=== PATIENT | female | born 1935 | race Caucasian/White ===

== ENCOUNTER 2022-12-24 02:15 | Emergency (ER) | payer MEDICARE, BC, SELFPAY ==
[2022-12-24] VITALS (54 sets, daily range): BP systolic 106–158; BP diastolic 47–87; PULSE 39–50; RESP 14–20; TEMP 37.1; O2SAT 89–100; BMI 28.1
--- NOTE | 2022-12-24 | CRLHL7_ITS ---
For Patients: As a result of the Century Cures Act, medical imaging exams and procedure reports are released immediately into your electronic medical record. You may view this report before your referring provider. If you have questions, please contact your health care provider. Indication: POST REDUCTION LT ELBOW Technique: Left elbow 3 views Comparison: December 24, 2022. Impression: Status post reduction of previously noted dislocated left elbow joint. Alignment is improved. Question of small osseous fragment versus splint material artifact adjacent to the radial head. Overall, splinting material limits evaluation of the osseous detail. Fracture fragment not excluded. Dictated by Balaji Israel MD @ 12/24/2022 5:20:18 AM (Electronically Signed)
--- NOTE | 2022-12-24 02:24 | CRLHL7_ITS ---
For Patients: As a result of the Cures Act, medical imaging exams and procedure reports are released immediately into your electronic medical record. You may view this report before your referring provider. If you have questions, please contact your health care provider. Indication: Fall with elbow dislocation. Technique: Left elbow AP 1 views. Comparison: None. Findings/Impression: There is a dislocation of the elbow joint. No fracture line evident. No other abnormality. Dictated by Ramirez Ibarra MD @ 12/24/2022 3:01:57 AM (Electronically Signed)
--- NOTE | 2022-12-24 02:24 | ED.GENADULT ---
HPI - General Adult General Date Seen: 12/24/22 Chief complaint: Fall/Minor Trauma Stated complaint: fall Time Seen by Provider: 12/24/22 02:17 Source: patient and EMS Mode of arrival: EMS Limitations: other History of Present Illness HPI narrative: Patient is an 87-year-old woman brought in by EMS after falling down 4 stairs. She said her had already gone to bed but she was able to call for help. She denies hitting her head, denies neck pain. She has obvious deformity to the left elbow and was given 150 mcg of fentanyl and 2 mg of Versed EN route. She is subsequently somewhat somnolent, but arouses and response to questions appropriately. She denies any difficulty breathing or chest pain, she denies loss of consciousness. Denies lower extremity pain. Denies numbness in the left distal upper extremity. She denies anticoagulation. Related Data Home Medications Medication Instructions Recorded Confirmed bupropion HCl 150 mg 24 hr tablet, mg PO 06/08/22 06/08/22 extended release bupropion HCl 300 mg 24 hr tablet, 300 mg PO 06/08/22 06/08/22 extended release buspirone 5 mg tablet 5 mg PO 06/08/22 06/08/22 desvenlafaxine succinate 100 mg 700 mg PO 06/08/22 06/08/22 tablet,extended release 24 hr donepezil 10 mg tablet 10 mg PO 06/08/22 06/08/22 gabapentin 300 mg capsule 300 mg PO 06/08/22 06/08/22 lorazepam 1 mg tablet mg PO 06/08/22 06/08/22 oxybutynin chloride 5 mg tablet 5 mg PO 06/08/22 06/08/22 rosuvastatin 10 mg tablet 10 mg PO 06/08/22 06/08/22 trazodone 100 mg tablet 100 mg PO 06/08/22 06/08/22 acetaminophen 500 mg tablet 500 mg PO Q6H PRN 12/24/22 12/24/22 (Tylenol Extra Strength) folic acid 400 mcg tablet 400 mcg PO DAILY 12/24/22 12/24/22 multivitamin (Daily Multi-Vitamin 1 tab PO DAILY 12/24/22 12/24/22 tablet) vitamin B complex (B 1 tab PO DAILY 12/24/22 12/24/22 Complex-Vitamin B12 tablet) Allergies Allergy/AdvReac Type Severity Reaction Status Date / Time No Known Drug Allergies Allergy Verified 06/08/22 12:02 Review of Systems Status of ROS: Reports: 10 or more systems reviewed and unremarkable except as noted in History and below [facility] Social History Smoking Status: Former smoker Do you use any of these nicotine containing products: None Non-prescribed substance use: denies use Exam Narrative: Exam Narrative: Vital signs as noted above. In general, an alert, somewhat somnolent elderly woman, rouses to voice. Head: Normocephalic, atraumatic. Eyes: Pupils are small but reactive bilaterally. Extraocular movements are full. Conjunctivae are normal. ENT: Mucous membranes are moist. No facial trauma. Neck: Supple without lymphadenopathy. Nontender to palpation. Heart: Regular rate and rhythm. No murmur or rub. Lungs: Clear bilaterally. No increased work of breathing, crackles or wheezes. Chest is nontender. Abdomen: Soft and nontender. No organomegaly. Back: Not evaluated initially secondary to pain with any movement of her arm. Pelvis: Nontender to palpation. Extremities: There is obvious deformity of the left elbow. Radial pulse is intact and sensation is intact to light touch. She is able to wiggle her fingers. She has a 0.5 cm laceration on her left thumb. Right upper extremity and bilateral lower extremities are atraumatic. Neurologic: Patient is somnolent but arousable, and oriented to person and place. Consistent with significant medications en route. Speech is fluent. Face is symmetric. Moves all extremities equally. Affect: Normal. Skin: Warm and dry. Well perfused. Const: Vital Signs, click to edit/add: Vital Signs - 24 hr 12/24/22 02:20 12/24/22 02:37 12/24/22 02:40 Temperature 98.7 F Pulse Rate 46 L 46 L Pulse Rate [Right Pulse Oximeter] 45 L Respiratory Rate 16 Blood Pressure 149/74 H Blood Pressure [Ri ght Upper Arm] 158/69 H Pulse Oximetry 93 89 97 Oxygen Delivery Me thod Nasal Cannula Oxygen Flow Rate 3 12/24/22 02:41 12/24/22 02:43 12/24/22 02:52 Temperature Pulse Rate 44 L 48 L Pulse Rate [Right Pulse Oximeter] Respiratory Rate Blood Pressure 150/64 H 145/65 H Blood Pressure [Ri ght Upper Arm] Pulse Oximetry 97 97 Oxygen Delivery Me thod Oxygen Flow Rate 12/24/22 03:03 12/24/22 03:12 12/24/22 03:12 Temperature Pulse Rate Pulse Rate [Right Pulse Oximeter] Respiratory Rate Blood Pressure 142/87 H 146/64 H Blood Pressure [Ri ght Upper Arm] Pulse Oximetry 94 Oxygen Delivery Me thod Oxygen Flow Rate 12/24/22 03:22 12/24/22 03:32 12/24/22 03:42 Temperature Pulse Rate Pulse Rate [Right Pulse Oximeter] Respiratory Rate Blood Pressure 115/56 L 142/57 H 125/55 L Blood Pressure [Ri ght Upper Arm] Pulse Oximetry Oxygen Delivery Me thod Oxygen Flow Rate 12/24/22 03:52 12/24/22 04:00 12/24/22 04:02 Temperature Pulse Rate 42 L 42 L Pulse Rate [Right Pulse Oximeter] Respiratory Rate Blood Pressure 128/64 137/59 L Blood Pressure [Ri ght Upper Arm] Pulse Oximetry 96 95 Oxygen Delivery Me thod Oxygen Flow Rate 12/24/22 04:10 12/24/22 04:12 12/24/22 04:23 Temperature Pulse Rate 42 L 44 L Pulse Rate [Right Pulse Oximeter] Respiratory Rate Blood Pressure 131/55 L 110/52 L Blood Pressure [Ri ght Upper Arm] Pulse Oximetry 97 96 Oxygen Delivery Me thod Oxygen Flow Rate 12/24/22 04:25 12/24/22 04:30 12/24/22 04:31 Temperature Pulse Rate 45 L 49 L Pulse Rate [Right Pulse Oximeter] Respiratory Rate 16 15 Blood Pressure 141/68 H Blood Pressure [Ri ght Upper Arm] Pulse Oximetry 98 100 Oxygen Delivery Me thod Oxygen Flow Rate 12/24/22 04:32 12/24/22 04:35 12/24/22 04:38 Temperature Pulse Rate 50 L 44 L 45 L Pulse Rate [Right Pulse Oximeter] Respiratory Rate 16 20 17 Blood Pressure 137/65 132/65 146/64 H Blood Pressure [Ri ght Upper Arm] Pulse Oximetry 100 100 100 Oxygen Delivery Me thod Oxygen Flow Rate 12/24/22 04:40 12/24/22 04:41 12/24/22 04:44 Temperature Pulse Rate 48 L 43 L 42 L Pulse Rate [Right Pulse Oximeter] Respiratory Rate 15 15 Blood Pressure 114/60 134/60 Blood Pressure [Ri ght Upper Arm] Pulse Oximetry 100 100 100 Oxygen Delivery Me thod Oxygen Flow Rate 12/24/22 04:45 12/24/22 04:47 12/24/22 04:50 Temperature Pulse Rate 42 L 44 L 50 L Pulse Rate [Right Pulse Oximeter] Respiratory Rate 14 18 Blood Pressure 130/67 Blood Pressure [Ri ght Upper Arm] Pulse Oximetry 100 100 92 Oxygen Delivery Me thod Oxygen Flow Rate 12/24/22 04:51 12/24/22 04:53 12/24/22 04:54 Temperature Pulse Rate 40 L 40 L 44 L Pulse Rate [Right Pulse Oximeter] Respiratory Rate Blood Pressure 119/57 L 119/61 Blood Pressure [Ri ght Upper Arm] Pulse Oximetry 97 97 96 Oxygen Delivery Me thod Oxygen Flow Rate 12/24/22 04:55 12/24/22 04:56 12/24/22 04:59 Temperature Pulse Rate 40 L 42 L 39 L Pulse Rate [Right Pulse Oximeter] Respiratory Rate Blood Pressure 106/66 117/49 L Blood Pressure [Ri ght Upper Arm] Pulse Oximetry 95 97 Oxygen Delivery Me thod Oxygen Flow Rate 12/24/22 05:00 12/24/22 05:02 12/24/22 05:05 Temperature Pulse Rate 39 L 42 L 43 L Pulse Rate [Right Pulse Oximeter] Respiratory Rate Blood Pressure 118/58 L 125/55 L Blood Pressure [Ri ght Upper Arm] Pulse Oximetry 97 96 96 Oxygen Delivery Me thod Oxygen Flow Rate 12/24/22 05:06 12/24/22 05:08 Temperature Pulse Rate 43 L 43 L Pulse Rate [Right Pulse Oximeter] Respiratory Rate Blood Pressure 124/55 L Blood Pressure [Ri ght Upper Arm] Pulse Oximetry 96 96 Oxygen Delivery Me thod Oxygen Flow Rate Documenting provider has reviewed patient's vital signs: yes Course Course Hospital Course: Patient arrived with an IV in place and medications as discussed above. X-rays were done of the left elbow, single view only secondary to pain. This confirmed dislocation by my review. No obvious fracture on initial films. Patient had last had some watermelon at 8:00 p.m., arrived into the ER at around 2 a.m.. I did not have any other physician in house to help with sedation, therefore had to wait until she was fully NPO before asking anesthesia to provide sedation. In the meantime, I did put in some local anesthetic and attempted reduction that way. I was able to get partial reduction but not complete, and she was still uncomfortable, so I decided to abort that and simply wait until 3:30 a.m., at which time we called the [facility] to come in so that we could do her procedure at around 4. Procedure note: Sedation was provided by [facility] using propofol. She was maintained on oximetry, end-tidal CO2, playground monitor. She did well in terms of sedation without complications. Once sedated, the elbow was reduced using traction counter traction and flexion without difficulty. She is placed in a long-arm splint using Ortho Glass and 3 Margarito wraps. X-rays following the procedure confirm reduction. The small cut on her thumb was cleaned and bandaged. Did not require closure. At this time, she is denying any other complaints. She still has some pain in the elbow although it is improved; she says she has tolerated Vicodin well in the pass and I will give her few those for home. She is ambulatory without difficulty here. She will need orthopedic follow-up in the next few days. Vital Signs Vital signs: Initial Vital Signs Temperature 98.7 F 12/24/22 02:20 Temperature Source Temporal Artery Scan 12/24/22 02:20 Pulse Rate 45 L 12/24/22 02:20 Pulse Rhythm Regular 12/24/22 02:20 Pulse Strength 3+ Normal 12/24/22 02:20 Respiratory Rate 16 12/24/22 02:20 Blood Pressure 158/69 H 12/24/22 02:20 Blood Pressure Mean 98 12/24/22 02:20 Blood Pressure Position Supine 12/24/22 02:20 Pulse Oximetry 93 12/24/22 02:20 Oxygen Delivery Method Nasal Cannula 12/24/22 02:20 Oxygen Flow Rate 3 12/24/22 02:20 Vital Signs Temperature 98.7 F 12/24/22 02:20 Pulse Rate 45 L 12/24/22 02:20 Respiratory Rate 16 12/24/22 02:20 Blood Pressure 158/69 H 12/24/22 02:20 Pulse Oximetry 93 12/24/22 02:20 Oxygen Delivery Method Nasal Cannula 12/24/22 02:20 Oxygen Flow Rate 3 12/24/22 02:20 Temperature 98.7 F 12/24/22 02:20 Pulse Rate 43 L 12/24/22 05:08 Respiratory Rate 18 12/24/22 04:47 Blood Pressure 124/55 L 12/24/22 05:08 Pulse Oximetry 96 12/24/22 05:08 Oxygen Delivery Method Nasal Cannula 12/24/22 02:20 Oxygen Flow Rate 3 12/24/22 02:20 Discharge Plan Discharge Clinical Impression: Dislocation of left elbow Patient Disposition: Home, Self-Care Condition: Improved Instructions: Elbow Dislocation (ED) Additional Instructions: Orthopedic follow-up in the next few days. Call [phone] to schedule an appointment. You can use Vicodin if needed for pain, or you can take plain Tylenol. You should not combine the 2 as Vicodin has Tylenol in it. Be careful when taking Vicodin as this can cause dizziness and increased fall risk. Prescriptions: No Action bupropion HCl 150 mg tablet extended release 24 hr PO bupropion HCl 300 mg tablet extended release 24 hr 300 mg PO trazodone 100 mg tablet 100 mg PO buspirone 5 mg tablet 5 mg PO lorazepam 1 mg tablet PO rosuvastatin 10 mg tablet 10 mg PO desvenlafaxine succinate 100 mg tablet extended release 24 hr 700 mg PO gabapentin 300 mg capsule 300 mg PO donepezil 10 mg tablet 10 mg PO oxybutynin chloride 5 mg tablet 5 mg PO folic acid 400 mcg tablet 400 mcg PO DAILY acetaminophen [Tylenol Extra Strength] 500 mg tablet 500 mg PO Q6H PRN multivitamin [Daily Multi-Vitamin] Tablet 1 tab PO DAILY vitamin B complex [B Complex-Vitamin B12] Tablet 1 tab PO DAILY Follow Up/Referrals: Kristin Delgado MD [Primary Care Provider] - Stand Alone Forms: [employer] Info Instructions Discharge Comment: patient assisted with instymed and into the car. Patient tolerated transfer into the car. Patient discharged home with .
--- NOTE | 2022-12-24 05:02 | P.ANES_ITS ---
Anesthesia Charges Start Date/Time Anesthesia Start Date: 12/24/22 Anesthesia Start Time: 04:29 Stop Date/Time Anesthesia Stop Date: 12/24/22 Anesthesia Stop Time: 04:50 Summary Emergency: LOGISTICS LEAD Extremes of Age - Over 70 or under 1: LOGISTICS LEAD
--- NOTE | 2022-12-24 05:02 | W.ANESCHARGE ---
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
[2022-12-24] MEDS: HYDROCODONE-ACETAMIN 5-325 MG 1 TAB PO (05:56)
== END 2022-12-24 06:18 | disposition home or self-care (01) ==
PROVIDERS: Emergency Provider Emergency Medicine; PCP Family Medicine
DX: S53.105A Unspecified dislocation of left ulnohumeral joint, initial encounter (principal); W10.9XXA Fall (on) (from) unspecified stairs and steps, initial encounter
CPT/HCPCS: 01730; 24605; 73070; 94761; 99100; 99140; 99284; 99291; A9270; G0390; J2704; J3490

== ENCOUNTER 2023-04-02 13:00 | Outpatient (RCR) | payer MEDICARE, BC, SELFPAY ==
--- NOTE | 2023-02-06 14:34 | REH.OT ---
Pt was scheduled for OT evaluation today, however, pt did not show for her visit. Make Ready Mechanic called pt and she stated that she had forgotten about her appointment. Pt has been rescheduled for OT evaluation next week.
--- NOTE | 2023-02-13 15:26 | OT.OPOE ---
OT Outpatient Ortho Eval OT Outpatient Ortho Eval* Start: 02/06/23 07:23 Freq: Status: Active Protocol: Document 02/13/23 08:47 AMB (Rec: 02/13/23 15:22 AMB [id number]) E-signed By Faye Saxena, OTR/L, CLT, RN FORENSIC OT OP Ortho Eval Details Complexity Complexity Low Insurance Information Insurance Information Medicare B Outpatient History/Precautions Current Condition/Medical Diagnosis Referring Provider Dr Balderas Treatment Diagnosis LUE elbow dislocation Date of Onset 12/24/22 Medical Conditions Metal Implants,Arthritis Other Conditions PMH (copied from ortho chart): Active Problems (Updated 02/03 @ 10:53 by Coco Villa) Stiffness of finger joint of left hand (Acute) all digits, all joints. M25.642 - Stiffness of left hand, not elsewhere classified (ICD-10) Elbow stiffness (Acute) M25.629 - Stiffness of unspecified elbow, not elsewhere classified (ICD-10) Dislocation of left elbow ( Acute) S53.105A - Unspecified dislocation of left ulnohumeral joint, initial encounter (ICD-10) Osteoarthritis of carpometacarpal (CMC) joint of left thumb (Chronic) Severe M18.12 - Unilateral primary osteoarthritis of first carpometacarpal joint, left hand (ICD-10) Primary osteoarthritis, left wrist (Chronic) STT M19.032 - Primary osteoarthritis, left wrist ( ICD-10) Medical History (Updated 02/03 @ 10:53 by Coco Villa) Pain of left hip M25.552 - Pain in left hip ( ICD-10) Low back pain M54.50 - Low back pain, unspecified (ICD-10) Fracture of shaft of left femur S72.302A - Unspecified fracture of shaft of left femur, initial encounter for closed fracture (ICD-10) Fall W19.XXXA - Unspecified fall, initial encounter (ICD-10) Degenerative joint disease () M19.90 - Unspecified osteoarthritis, unspecified site (ICD-10) Surgical History (Updated @ 11:09 by Whit Woods ~ INFORMATION TECHNOLOGY CONSULTANT, INFORMATION TECHNOLOGY CONSULTANT) History of open reduction and internal fixation (ORIF) procedure (~11/2019) Z98.890 - Other specified postprocedural states (ICD-10) 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) Z96.641 - Presence of right artificial hip joint (ICD-10) 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) Z96.642 - Presence of left artificial hip joint (ICD-10) 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) Z96.652 - Presence of left artificial knee joint (ICD-10) 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) Z96.612 - Presence of left artificial shoulder joint (ICD -10) 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) Z96.611 - Presence of right artificial shoulder joint (ICD -10) Status post total right knee replacement (12/12/15) Z96.651 - Presence of right artificial knee joint (ICD-10) S/P trigger finger release () Z98.890 - Other specified postprocedural states (ICD-10) Medications: acetaminophen (Tylenol Extra Strength) 500 mg PO Q6H PRN bupropion HCl 300 mg PO bupropion HCl mg PO buspirone 5 mg PO desvenlafaxine succinate ER 700 mg PO donepezil 10 mg PO folic acid 400 mcg PO DAILY gabapentin 300 mg PO hydrocodone-acetaminophen 5- 325 mg 1 tab PO Q4-8H PRN lorazepam mg PO multivitamin (Daily Multi- Vitamin tablet) 1 tab PO DAILY oxybutynin chloride 5 mg PO rosuvastatin 10 mg PO trazodone 100 mg PO vitamin B complex (B Complex- Vitamin B12 tablet) 1 tab PO DAILY Medical/Functional History Medical History Reviewed Yes Prior Level of Function/Mobility Full, pain-free use of her LUE prior to injury. Pt lives with in their own home . Pt ambulates with a SEC, somewhat unsteady. Prior to injury, pt was independent with all self cares and did much of the cooking. Pt's did the laundry and they hired assistance for cleaning and yardwork. Pt's daughter was in attendance during today's OT evaluation. Dtr and ANSON will be moving in with pt and her to assist with cares and instructor product inspection and whatever else they need help with. Pt / do not drive. Social History Employment Status Retired Hobbies [employer] Sedentary Ortho Subjective Subjective Subjective Pt states that on 12/24/22 she fell backwards down 4 steps in her home. She was seen in the ER and discovered to have a dislocated elbow which was then reduced by Dr Vasques under anesthesia. Pt was referred to orthopedics and did see Dr Balderas on 12/30 and given a hinged elbow brace, she had a re-check with him on 02/03 and the brace was discontinued and referral placed for OT to begin ROM. Pain Assessment Pain Present Pain Present Pain Reported Location Left Arm Description Tightness,Throbbing Intensity 5 Range of Motion and Strength Shoulder Range of Motion and Strength Shoulder Range of Motion and Strength 02/13/23 AROM of BUE shoulder WFL throughout. Elbow/Forearm Range of Motion and Strength Elbow/Forearm Range of Motion and 02/13/23 AROM of the LUE elbow Strength is -35-110, pronation is WNL, supination is 50. AROM of the LUE wrist flexion is 70, ext is 30, UD is 30, RD is 25. Composite fist is -6cm from DPC when measured at tip of 3rd digit. OT Problems Problems Problems Decreased Strength,Decreased Range of Motion,Decreased Dexterity,Pain,Lifting, Gripping,Pinching Other Problems Opening Containers,Dressing, Fasteners Patient Potential Good Assessment Assessment Assessment Pt is a pleasant 87yo female reporting to OT with pain, swelling, weakness and limited AROM in her LUE secondary to elbow dislocation 7 weeks ago. These deficits impair pt's ability to grasp, hold and carry items, complete self cares and IADLs. Pt will benefit from skilled OT intervention to address limitations and restore full, pain-free use of her LUE. Occupational Therapy Treatment Plan - OP Potential Rehabilitation Potential Good Set Goals Goals Set with Patient Yes Goals Goals 1. Pt will be independent and compliant with HEP in order to resume full, pain-free use of the involved UE. 3 weeks 2. Pt will demonstrate full, pain-free AROM of the involved UE in order to improve ability to grasp and hold. 6 weeks 3. Pt will demonstrate pain- free roll filler and pinch strength comparable to the uninvolved side in order to improve functional grasp, hold, reach, and lifting ability needed to complete self-care, leisure tasks, and work activities. 8 weeks. Treatment Plan Treatment Plan Evaluation,Edema Control,Joint Mobilization,Manual Therapy, Therapeutic Exercise, Therapeutic Activities,Self Care/Home Management,Fruit Inspector Training,Education Expected Frequency 1-2x Week Expected Duration 8-10 Weeks Home Program Home Program Home Program Initiated Home Program Specifics Initiated HEP For AROM of the LUE elbow, forearm, wrist and hand. Following demo, pt is able to complete exs with cues for form, needs multiple cues for correct form. Pt was provided with written inst for use at home as well. Certification Certification I Certify That: Therapy Services Provided, Therapy Plan Established, Therapy Plan Reviewed Recertification Information Recertification Information Initial Certification Date 02/13/23 Recertification Due Date 05/14/23 Reasons to Continue Skilled Therapy Initiated skilled OT services today to address pain, weakness, swelling, and limited AROM in the LUE following elbow dislocation. Rehabilitation Potential Good Continued Plan of Care and Interventions Please see above POC. Provider Signature Shows Agreement With POC & Medical Necessity Physician Comment/Change Comment or Changes Physician NPI Number #
== END 2023-04-03 07:29 | disposition home or self-care (01) ==
PROVIDERS: PCP Family Medicine; Visit Provider Orthopaedic Surgery Sports Medicine
DX: S53.105D Unspecified dislocation of left ulnohumeral joint, subsequent encounter (principal); M25.629 Stiffness of unspecified elbow, not elsewhere classified; M25.642 Stiffness of left hand, not elsewhere classified; Z51.89 Encounter for other specified aftercare
CPT/HCPCS: 97035; 97110; 97140; 97165; X5282

== ENCOUNTER 2023-08-31 07:08 | Day surgery (SDC) | payer MEDICARE, BC, SELFPAY ==
[2023-08-31] VITALS (7 sets, daily range): BP systolic 147–177; BP diastolic 57–111; PULSE 60–69; RESP 16–18; TEMP 36.3–36.7; O2SAT 91–98; BMI 28.2
[2023-08-31] MEDS: BUPIVACAINE 0.5% 30 ML INJECTION (07:10)
[2023-08-31] MEDS: LIDOCAINE 2%-EPI 1:200,000 20 ML TOPICAL (07:10)
--- OUTSIDE RECORDS SUMMARY | 2023-08-31 07:13 | XMS_ITS | Clinical Summary ---
Author Name Unknown Organization [facility] Address [place], [place] [address] Care Team Providers Care Progress Man Name Role Phone Graham Ornelas MD Unavailable Emmy, Mary Brambila MD Unavailable [phone] Halima Pride MD Primary Care Provider Allergies Active Allergy Reactions Criticality Noted Date Comments Nsaids (Non-Steroidal Anti-Inflammatory Drug) Other - Describe In Comment Field 09/19/2011 Bleeding ulcer Simvastatin *Unknown 11/14/2019 Medications Medication Sig Dispensed Refills Start Date End Date Status MULTIVITAMIN TAB one daily 0 03/05/20 09 Active Cholecalciferol, Vitamin D3, (VITAMIN D-3) 5,000 unit Tab Take by mouth once daily. 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 Patient unsure of dosage and brand. 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 60 tablet 11 03/16/20 18 Active wheelchairIndicatio ns:Closed displaced subtrochanteric fracture of left femur, sequela,Acute pain of left knee Wheelchair: Standard with leg rests: (Swing away Length of need: 99 months 1 Device 0 10/12/19 21 Active acetaminophen (TYLENOL EXTRA STRGTH) 500 mg tablet Take 1 Tablet (500 mg) by mouth every 6 hours if needed (Patient takes 2 tabs tid). Max acetaminophen dose: 4000mg in 24 hrs. 0 08/15/19 22 Active donepeziL (ARICEPT) 10 mg tablet Take 1 Tablet (10 mg) by mouth at bedtime. 0 05/16/20 22 Active buPROPion (Wellbutrin XL) 150 mg Extended-Release tabletIndications:M ajor depressive disorder, recurrent episode, moderate (HC) Take 1 tab by mouth a day with 300mg tab for a total of 450mg a day 90 Tablet 01/30/20 23 Active buPROPion (WELLBUTRIN XL) 300 mg Extended-Release tabletIndications:M ajor depressive disorder, recurrent episode, moderate (HC) Take 1 Tablet (300 mg) by mouth every morning. 90 Tablet 1 01/30/20 23 Active busPIRone (BUSPAR) 5 mg tabletIndications:A nxiety Take 1 Tablet (5 mg) by mouth three times daily. 270 Tablet 01/30/20 23 Active desvenlafaxine succinate (PRISTIQ) 100 mg extended release tabletIndications:M ajor depressive disorder, recurrent episode, moderate (HC) Take 1 Tablet (100 mg) by mouth every morning. 90 Tablet 1 01/30/20 23 Active traZODone 300 mg tabletIndications:M ajor depressive disorder, recurrent episode, moderate (HC) Take 1 Tablet (300 mg) by mouth at bedtime. 90 Tablet 1 01/30/20 23 Active rosuvastatin (CRESTOR) 10 mg tabletIndications:H yperlipidemia, unspecified hyperlipidemia type TAKE 1 TABLET(10 MG) BY MOUTH AT BEDTIME 30 Tablet 0 08/21/19 24 Active gabapentin (NEURONTIN) 300 mg capsuleIndications: Chronic pain due to trauma,Closed displaced subtrochanteric fracture of left femur, sequela Take 2 Capsules (600 mg) by mouth at bedtime. 60 Capsule 0 08/29/19 24 Active oxybutynin (DITROPAN) 5 mg tabletIndications:U rge incontinence Take 1 Tablet (5 mg) by mouth two times daily. 60 Tablet 0 08/29/19 24 Active rosuvastatin (CRESTOR) 10 mg tabletIndications:H yperlipidemia, unspecified hyperlipidemia type TAKE 1 TABLET(10 MG) BY MOUTH AT BEDTIME 90 Tablet 0 05/21/20 23 024 Discontinued oxybutynin (DITROPAN) 5 mg tabletIndications:U rge incontinence TAKE 1 TABLET BY MOUTH TWICE DAILY 180 Tablet 0 05/31/20 23 024 Discontinued gabapentin (NEURONTIN) 300 mg capsuleIndications: Chronic pain due to trauma,Closed displaced subtrochanteric fracture of left femur, sequela TAKE 2 CAPSULES(600 MG) BY MOUTH AT BEDTIME 180 Capsule 0 05/31/20 23 024 Discontinued Active Problems Problem Noted Date Diagnosed Date Anxiety 10/14/2022 PTSD (post-traumatic stress disorder) 10/14/2022 Controlled substance agreement signed 07/16/2022 Overview: 07/16/22,Shalonda Landry NP, Psychiatry Microscopic hematuria 09/02/2019 Overview: Present on UA 09/02/2019. Should be recheck next time patient is in clinic. Mild cognitive impairment 09/02/2017 Status post total right knee replacement 016 Major depression in partial remission 02/01/2014 Posttraumatic stress disorder 12/09/2013 Major depressive disorder, recurrent episode, mo derate 12/09/2013 Recurrent major depression in remission 08/14/19 10 S/P knee replacement 08/25/2008 Hip joint replacement by other means 01/24/2008 Other and unspecified hyperlipidemia 10/27/2006 Osteoarthrosis, unspecified whether generalized or localized, unspecified site 10/27/2006 health maintenance 10/27/2006 Overview: colonoscopy2/04-repeat 5-7 years pap 2004 mammo 2003 Resolved Problems Problem Noted Date Diagnosed Date Resolved Date Controlled substance agreement signed 01/23/2017 05/16/2022 Overview: Controlled substance agreement for Ativan on file and signed 01/23/2017. Designated pharmacy: [facility] [phone] Prescribing physician:Mary Booth MD. Diagnosis: Anxiety. Ora Dickerson .................... 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 01/24/2008 08/14/2009 Depressive disorder, not elsewhere classified 10/28/19 07 08/14/2009 Encounters Date Type Department Care Team Description 08/29/2023 Refill [facility] [address] [place] [address] Halima Pride MD Refill Request (Oxybutynin) 08/28/2023 Refill [facility] [address] [place] [address] Halima Pride MD Refill Request (Gabapentin, Oxybutynin) 08/21/2023 Refill [facility] [address] [place] [address] Halima Pride MD Refill Request (Rosuvastatin) 08/18/2023 Refill [facility] [address] [place] [address] Halima Pride MD Refill Request (Rosuvastatin) 08/03/2023 Refill [facility] [address] [place] [address] Shalonda Landry, RM Refill Request (Trazodone) 06/12/2023 Refill [facility] [address] [place] [address] Shalonda Landry, RM Refill Request (Desvenlafaxine Succinate) 06/05/2023 Refill [facility] [address] [address] Mary Booth MD Refill Request (Trazodone) 05/31/2023 Refill [facility] [address] [place] [address] Halima Pride MD Refill Request (Oxybutynin, Gabapentin) from Last 3 Months Immunizations Name Administration Dates Next Due COVID-19 vaccine (Ekso Bionics-Bio NTech 30mcg/0.3mL) 12YO+ BIVALENT PF, MDV 12/05/2022,04/30/2022 COVID-19 vaccine (Pfizer-Bio NTech 30mcg/0.3mL) 12YO+ MED-SUCROSE PF, MDV 11/13/2021 COVID-19 vaccine (Ekso Bionics-Bio NTech 30mcg/0.3mL) PF, MDV 10/13/2020,10/13/2020,09/22/2020 Hepatitis A (Adult) 05/25/2003,02/07/2000 Influenza A (H1N1), Inactiva ji (Age >=3 Years) 07/26/2009,07/24/2009 Influenza Virus, Unspecified 04/30/2022, 04/22/2019,04/08/2018,2015,04/17/2016,04/06/2015,04/19/2014,0 04/07/2013,04/05/2012,04/29/2011, 010,07/26/2009,05/15/2008,05/23/2004 Influenza, High-dose Inactivated 019,04/08/2018,04/14/2017,2015,04/06/2015,04/19/2014,04/07/2013 Influenza, High-dose Quadriv alent Inactivated 04/05/2021,04/26/2020 Influenza, IIV3 (Age >=3 years) 04/05/20 12,04/29/2011,05/03/2010,2008,05/15/2008,11/27/2005,05/23/2004 Influenza, Inactivated AIIV4 (Age 65+ Years) Preserv Free 04/30/2022 Pneumococcal Poly,23-Valent (Pneumovax) 10/28/2011,06/01/2001 Pneumococcal conj 13-Valent (Prevnar 13) 10/25/2014 Td (Age >=7 Years) 08/15/2021,02/07/2000 Tdap 09/05/2010 Typhoid (injectable) 07/12/2013,05/25/2003,02/06 Zoster (Shingrix-RZV, recombinant) 04/08/2018, Zoster (Zostavax-ZVL, live) 08/18/2006 Family History Medical History Relation Name Comments Unknown Father Unknown Mother Relation Name Status Comments Father Mother Social History Tobacco Use Types Packs/Day Years Used Date Smoking Tobacco: Former Cigarettes Q uit: 08/10/1961 Smokeless Tobacco: Never Tobacco Cessation:Counseling Given: Not Answered Alcohol Use Standard Drinks/Week Comments Yes 3 (1 standard drink = 0.6 oz pure alcohol) Light beer every once in awhile 10/14/22 PHQ-2 Answer Date Recorded PHQ-2 TOTAL SCORE 4 01/29/2023 Social Connections Answer Date Recorded Frequency of Communication with Friends and Fami ly Not on file 05/20/2023 Financial Resource Strain Answer Date R ecorded Difficulty of Paying Living Expenses 3 05/16/2022 Difficulty of Paying Living Expenses Not on file 05/16/2022 Food Insecurity Answer Date Recorded Worried About Running Out of Food in the Last Ye ar 1 05/16/2022 Transportation Needs Answer Date Record ed Lack of Transportation (Medical) 1 05/16/2022 Housing Stability Answer Date Recorded Unable to Pay for Housing in the Last Year 1 05/16/2022 Sex and Gender Information Value Date Recorded Sex Assigned at Not on file Gender Identity Not on file Sexual Orientation Not on file Obstetrics History Para Term AB IAB SAB Ectopic Multiple Livin g Live Births 1 1 1 Date Outcome GA Total Labor Labor/2nd/3rd Weight Sex Delivery Anes PTL Radha A1 A5 Name Cl in Term Last Filed Vital Signs Vital Sign Reading Time Taken Comments Blood Pressure 132/67 01/29/2023 1:58 PM CDT Pulse 77 01/29/2023 1:58 PM CDT Temperature 36.4 ??C (97.6 ??F) 10/15/2021 2:18 PM CS T Respiratory Rate 20 08/25/2008 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 Oxygen Saturation 94% 05/16/2022 1:52 PM CDT Inhaled Oxygen Concentration - - Weight 79.9 kg (176 lb 3.2 oz) 01/29/2023 1:58 P M CDT Height 167 cm (5' 5.75) 05/16/2022 1:52 PM CDT Body Mass Index 28.66 05/16/2022 1:52 PM CDT Plan of Treatment Upcoming Encounters Date Type Department Care Team (Late st Contact Info) Description 09/07/2023 1:55 PM COOK SUPERVISOR Office Visit [facility] [address] [place] [address] Halima Pride MD [address] [place] [address] Health Maintenance Due Date Last Done Comments COVID-19 vaccine series (2022- season) 2023 12/05/2022, 04/30/2022, 11/13/2021, Additional history exists Influenza for age 65+ 04/10/2023 04/30/2022 , 04/30/2022, 04/05/2021, Additional history exists BMI (ht and wt on same day) for age 18+ 05/16/2023 05/16/2022, 07/03/2021, 10/11/2020, Additional history exists Medicare Wellness for age 65+ 05/16/2023, 10/11/2020, 09/26/2019, Additional history exists Depression screening for age 12+ 01/30/2024 01/29/2023, 10/14/2022, 10/13/2022, Additional history exists Tetanus booster 08/15/2031 08/15/2021, 08/11, 02/07/2000 DEXA/DXA scan for age 65+ Completed 05/18/2008 Tdap Completed 09/05/2010 Pneumococcal series for age 65+ Completed 10/25/2014, 10/28/2011, 06/01/2001 Zoster (shingles) series for age 50+ Completed 04/08/2018, 01/29/2018, 08/18/2006 Advance Directives Documents on File Type Date Recorded Patient Cut Out Stitcher Expl anation Healthcare Directive 10/16/2014 9:59 AM [facility], 04/18/2014 Care Teams Progress Man Relationship Specialty Start Date End Date Halima Pride MD [address] [facility] [place] [address] PCP - General Family Practice 09/29/19 Graham Ornelas MD Surgery - Orthopedics 12/08/12 Mary Booth MD [address] [facility] [address] [place] [address] Psychiatry 07/11/15
--- NOTE | 2023-08-31 08:03 | PM.ORPRC ---
Procedure Note Date of procedure: 08/31/23 Procedure: PREOPERATIVE DIAGNOSIS: 1. Left carpal tunnel syndrome POSTOPERATIVE DIAGNOSIS: 1. Left carpal tunnel syndrome PROCEDURE: 1. Left open carpal tunnel release SURGEON: Noel Balderas MD. PROCESS IMPROVEMENT SPECIALIST: Oliver Cohen PA-C ANESTHESIA: Local anesthetic (50:50 mixture of 2% lidocaine with epi and 0.5% marcaine plain) - 10ml total IMPLANTS: None EBL: 2 mL TOURNIQUET: None COMPLICATIONS: None evident INDICATIONS: The patient is a pleasant 87-year-old female who has experienced left hand numbess/tingling affecting the radial 3.5 digits for multiple months. It has progressively gotten worse. Nonoperative management has been tried and failed, and therefore surgery was recommended. DESCRIPTION OF PROCEDURE: Following a thorough discussion of risks, benefits, and alternatives consent was obtained and the operative extremity was marked. The patient was brought to the operating room and placed supine on the operating table. Local anesthesia induction was undertaken in preop holding. No antibiotics were administered as this was planned to be a local case only. Proper time-out was performed identifying proper patient, site, and procedure. The operative extremity was prepped and draped in the appropriate sterile fashion using ChloraPrep. An incision was made in line with the radial border of the ring finger beginning 1 cm distal to the distal wrist crease and progressing for another 2.5cm distal. Caution was taken to stay proximal to Urrutia's cardinal line. Sharp incision through the skin, subcutaneous tissue, and palmar fascia was performed. The thenar musculature was bluntly elevated off the transverse carpal ligament. The ligament was directly visualized, and divided sharply with a 15 blade. This was released from its most proximal to the most distal extent. Metzenbaum scissor was also utilized to release the fascia extension proximally. We confirmed complete release of the transverse carpal ligament. Closure was performed with 4-O nylon in interrupted fashion. Soft dressings were applied, and the patient was transferred to the recovery room in stable condition. PLAN: 1. Encourage elevation of the operative extremity. 2. Range of motion of the fingers and hand/wrist as tolerated. 3. Ibuprofen/acetaminophen and/or oxycodone as needed for pain control. 4. Follow up with PA visit or nurse visit in 12-16 days for wound check and suture removal.
== END 2023-08-31 08:31 | disposition home or self-care (01) ==
PROVIDERS: PCP Family Medicine; Visit Provider Orthopaedic Surgery Sports Medicine
PROC: (CPT 64721; principal; 2023-08-31 07:30)
DX: G56.02 Carpal tunnel syndrome, left upper limb (principal)
CPT/HCPCS: 64721; J0665